=== PATIENT | male | born 1995 | race Caucasian/White ===

== ENCOUNTER 2017-06-19 02:07 | Emergency (ER) | payer BC ==
[~2017-06-19 02:07] MED LIST: CEPH-13 PO; PER PO
[2017-06-19] MEDS ORDERED: [UNRECOGNIZED DRUG - REMARK] (02:13)
[2017-06-19] MEDS ORDERED: METH18ERPT PO (02:13)
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
--- NOTE | 2017-06-19 03:21 | RADIOLOGY IMAGING REPORT ---
FACILITY: [facility] PATIENT NAME: Morales Penaloza : 1995 MR: [id number] V: [id number] EXAM DATE: ORDERING PHYSICIAN: SUSANA MCCLOUD TECHNOLOGIST: Location: [facility] Patient: Morales Penaloza : 1995 Visit/Account:[id number] Date of Sevice: 06/19/2017 EXAMINATION: Facial bone CT History: Trauma COMPARISON STUDIES: none TECHNIQUE: Axial images were obtained from the superior aspect of the orbits through the inferior as pect of mandible. Coronal reformatted images were obtained from the axial source data. No IV contrast was administered. One of the following dose optimization techniques was utilized in the performance of this exam: Automated exposure control; adjustment of the mA and/or kV according to the patient's s ize; or use of an iterative reconstruction technique. Specific details can be referenced in the [facility]'s radiology CT exam operational policy. FINDINGS: Soft Tissues: Swollen around the left mandible. Mandible / TMJ: negative Maxillae / pterygoid plates: negative Zygoma / zygomatic arches: negative Orbits: negative Nasal bones / nasal septum: negative Sinuses: negative Visualized brain: negative IMPRESSION: Soft tissue swelling on the left mandible. No evidence of fracture. Report Dictated By: Daniel Mcknight MD at 06/19/2017 3:09 AM Report E-Signed By: Daniel Mcknight MD at 06/19/2017 3:12 AM WSN:[id number]
--- NOTE | 2017-06-19 03:21 | RADIOLOGY IMAGING REPORT ---
FACILITY: [facility] - [place] PATIENT NAME: Morales Penaloza : 1995 MR: [id number] V: [id number] EXAM DATE: ORDERING PHYSICIAN: SUSANA MCCLOUD TECHNOLOGIST: Location: [facility] Patient: Morales Penaloza : 1995 Visit/Account:[id number] Date of Sevice: 06/19/2017 EXAMINATION: Head CT without intravenous contrast History: Trauma TECHNIQUE: Contiguous axial images were obtained from the skull base to the vertex without intraven ous contrast. One of the following dose optimization techniques was utilized in the performance of th is exam: Automated exposure control; adjustment of the mA and/or kV according to the patient's size; or use of an iterative reconstruction technique. Specific details can be referenced in the facility 's radiology CT exam operational policy. COMPARISON STUDIES: none FINDINGS: Visualized mastoid air cells / paranasal sinuses: negative Calvarium and scalp: negative White matter: negative Dural venous sinuses / arterial structures: negative Ventricles / sulci / fissures: negative Masses / hemorrhage / midline shift: negative Extra-axial spaces: negative IMPRESSION: Normal head CT. No evidence of a mass, acute ischemia or hemorrhage. Report Dictated By: Daniel Mcknight MD at 06/19/2017 3:06 AM Report E-Signed By: Daniel Mcknight MD at 06/19/2017 3:08 AM WSN:[id number]
[2017-06-19 03:30] VITALS: BP 137/85
[2017-06-19] MEDS ORDERED: IBUPROFEN 600 MG TAB TH PO ONE (03:30)
== END 2017-06-19 03:56 | disposition home or self-care (01) ==
LOC: ER 02:10
DX: S00.83XA Contusion of other part of head, initial encounter (principal); S09.90XA Unspecified injury of head, initial encounter; Y04.2XXA Assault by strike against or bumped into by another person, initial encounter
CPT/HCPCS: 70450; 70486; 99283

== ENCOUNTER 2017-11-19 20:42 | Emergency (ER) | payer BC ==
[~2017-11-19 20:42] MED LIST changes: +METH18ERPT PO; +[UNRECOGNIZED DRUG - REMARK]
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
[2017-11-19] MEDS ORDERED: CLAR-1 (20:48)
[2017-11-19] MEDS ORDERED: ALBU4TAB37 (20:48)
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
--- NOTE | 2017-11-19 21:36 | RADIOLOGY IMAGING REPORT ---
FACILITY: [facility] [place] PATIENT NAME: Morales Penaloza : 1995 MR: [id number] V: [id number] EXAM DATE: ORDERING PHYSICIAN: BENI SANTAMARIA TECHNOLOGIST: Location: [facility] Patient: Morales Penaloza : 1995 Visit/Account:[id number] Date of Sevice: 11/19/2017 INDICATION: Right lower extremity injury with knee, leg and ankle pain. EXAM DATE: 11/19/2017 8:52 PM COMPARISON: None. FINDINGS: 4 views right knee, 2 images of the right tibia/fibula, 3 views right ankle. Mineralization is normal . No acute alignment abnormality or fracture. Os trigonum. Soft tissues are unremarkable. IMPRESSION: Grossly normal right knee, tibia/fibula and ankle. Report Dictated By: Angle Viveros MD at 11/19/2017 9:27 PM Report E-Signed By: Angel Viveros MD at 11/19/2017 9:31 PM WSN:[id number]
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
[2017-11-19 22:12] VITALS: BP 116/80
== END 2017-11-19 22:08 | disposition home or self-care (01) ==
LOC: ER 20:53
DX: S80.11XA Contusion of right lower leg, initial encounter (principal)
CPT/HCPCS: 73564; 99284